=== PATIENT | female | born 1935 | race Caucasian/White ===

== ENCOUNTER 2017-11-12 06:33 | Day surgery (SDC) | payer OTHER ==
[~2017-11-12] VITALS: Ht 154.9 cm; Wt 81.1 kg
[~2017-11-12 06:33] MED LIST: ACID CONTROL150 MG PO; CALCIUM 500 +1 EACH PO; FISH OIL 1,0001 EAC7 PO; LIPITOR10 MG PO; LO-DOSE ASPIRIN81 M2 PO; MICROZIDE12.5 M1 PO; NAPROSYN250 MG PO; NORVASC5 MG PO; PRESERVISION T1 EACH PO; TOLTERODINE TART4 MG PO; VITAMIN C100 MG PO; ZESTRIL40 MG PO
[2017-11-12 07:24] VITALS: BP 165/79
[2017-11-12 14:35] VITALS: BP 147/64
[2017-11-12 15:42] VITALS: BP 137/56
[2017-11-12 17:13] VITALS: BP 132/62
== END 2017-11-12 17:17 | disposition home or self-care (01) ==
LOC: SDC 06:33
PROVIDERS: Neurological Surgery
PROC: 01NB0ZZ Release Lumbar Nerve, Open Approach (ICD-10-PCS; principal; 2017-11-12)
PROC: 0SB20ZZ Excision of Lumbar Vertebral Disc, Open Approach (ICD-10-PCS; principal; 2017-11-12)
DX: M48.062 Spinal stenosis, lumbar region with neurogenic claudication (principal); M54.16 Radiculopathy, lumbar region; I10 Essential (primary) hypertension; E78.00 Pure hypercholesterolemia, unspecified; K21.9 Gastro-esophageal reflux disease without esophagitis; Z87.891 Personal history of nicotine dependence; Z79.82 Long term (current) use of aspirin; M71.38 Other bursal cyst, other site
CPT/HCPCS: 72020; 76000; 82948; J0131; J0690; J1100; J1170; J1885; J2250; J2405; J2710; J2765; J3010